=== PATIENT | female | born 1990 | race Caucasian/White ===

== ENCOUNTER 2021-08-16 19:05 | Emergency (ER) | payer MEDICAID ==
[~2021-08-16] VITALS: Ht 160 cm; Wt 82.0 kg
[2021-08-16] MEDS ORDERED: PREDNISONE 20MG TABLET PO STA (20:33)
[2021-08-16] MEDS ORDERED: ALBUTEROL (0.083%) 2.5MG/3ML NEB HHN STA ×2 (20:33→22:55)
[2021-08-16] MEDS ORDERED: IPRATROPIUM BROMIDE (0.02%) 0.5MG/2.5ML NEB HHN STA (20:33)
[2021-08-16] MEDS ORDERED: ALBU6.7H9 INH (20:37)
[2021-08-16] MEDS ORDERED: P20 MT (20:37)
[2021-08-16 23:45] VITALS: BP 122/59
== END 2021-08-16 23:45 | disposition home or self-care (01) ==
LOC: ER 19:05
DX: J45.901 Unspecified asthma with (acute) exacerbation (principal); Z98.890 Other specified postprocedural states
CPT/HCPCS: 94640; 94644; 99285; J7512; Z7610